=== PATIENT | female | born 1960 | race Caucasian/White ===

== ENCOUNTER 2024-10-02 10:05 | Emergency (ER) | payer OTHER ==
[2024-10-02 10:48] LABS: #Basophils 0.1 thou/uL (0.0-0.2); #Eosinophils 0.0 thou/uL (0.0-0.7); #Lymphocytes 0.7 thou/uL (1.20-3.40); #Monocytes 0.3 thou/uL (0.11-0.59); #Neutrophils 14.3 thou/uL (1.40-6.50); %Basophils 0.3 % (0.0-1.0); %Eosinophils 0.0 % (0.0-10.0); %Lymphocytes 4.7 % (21.0-51.0); %Monocytes 2.1 % (0.0-10.0); %Neutrophils 92.8 % (42.0-75.0); Hematocrit 37.2 % (36.0-47.0); Hemoglobin 12.5 g/dL (12.0-16.0); Mean Corpuscular Hemoglobin 29.6 pg (27.0-31.0); Mean Corpuscular Volume 88.5 fl (78.0-98.0); Platelet Count 299 10x3/uL (130-400); Red Blood Cell (RBC) Count 4.20 mill/uL (4.20-5.40); White Blood Cell (WBC) Count 15.4 10x3/uL (4.8-10.8)
[2024-10-02 11:02] LABS: ALT (SGPT) 19 U/L (Less than 34); AST (SGOT) 16 U/L (11-34); Albumin 3.5 g/dL (3.1-4.5); Alkaline Phosphatase 48 U/L (40-110); Anion Gap 19 mmol/L (10-20); BUN (Urea Nitrogen) 11 mg/dL (9.8-20.1); Bilirubin, Total 1.3 mg/dL (0.3-1.2); Calc. Creatinine Clearance 0 mL/min (70-130); Carbon Dioxide 22 mmol/L (23-31); Chloride 98 mmol/L (98-107); Globulin 3.5 g/dL (2.4-3.5); Glucose 172 mg/dL (80-115); Potassium 3.2 mmol/L (3.5-5.1); Sodium 136 mmol/L (136-145)
[2024-10-02 11:12] LABS: Calcium 6.4 mg/dL (7.8-10.44); Magnesium 0.6 mg/dL (1.6-2.6)
[2024-10-02] MEDS ORDERED: Magnesium 2 GM/50 ML BAG (IN WATER) ONE ×2 (11:29→15:06)
[2024-10-02 13:30] LABS: Glucose, Urine (Dipstick) Negative (Negative); Leukocyte Trace (Negative); Protein, Urine (Dipstick) 30 mg/dL (Neg-Trace); Specific Gravity, Urine 1.015 (1.005-1.030)
[2024-10-02 13:40] LABS: Bacteria/HPF 2+ HPF (None Seen); CAUTI Indications for Culture Dysuria,urgency,freq; RBC/HPF 0-3 HPF (0-3)
[2024-10-02 13:41] LABS: Urine Culture Reflex No No
[2024-10-02] MEDS ORDERED: cefTRIAXone (ROCEPHIN) 1 GM VIAL ONE (16:35)
== END 2024-10-02 18:50 | disposition home or self-care (01) ==
LOC: BURERS 10:05
DX: E87.6 Hypokalemia (principal); E83.42 Hypomagnesemia; N39.0 Urinary tract infection, site not specified; I48.91 Unspecified atrial fibrillation; E11.9 Type 2 diabetes mellitus without complications; I11.0 Hypertensive heart disease with heart failure; I50.9 Heart failure, unspecified; E78.5 Hyperlipidemia, unspecified; Z79.84 Long term (current) use of oral hypoglycemic drugs; Z79.82 Long term (current) use of aspirin; Z79.899 Other long term (current) drug therapy; Z87.891 Personal history of nicotine dependence
CPT/HCPCS: 36415; 80053; 81001; 83735; 85025; 96361; 96365; 96366; 96367; J0696; J3475

== ENCOUNTER 2025-03-07 18:43 | Emergency (ER) | payer OTHER, MEDICAID ==
[2025-03-07 19:23] LABS: INR-International Normal Ratio 1.0; Prothrombin Time 13.7 sec (12.0-14.7)
[2025-03-07 19:24] LABS: Hematocrit 44.4 % (36.0-47.0); Hemoglobin 15.1 g/dL (12.0-16.0); Mean Corpuscular Hemoglobin 30.7 pg (27.0-31.0); Mean Corpuscular Volume 90.3 fl (78.0-98.0); Platelet Count 307 10x3/uL (130-400); Red Blood Cell (RBC) Count 4.92 mill/uL (4.20-5.40); White Blood Cell (WBC) Count 15.2 10x3/uL (4.8-10.8)
[2025-03-07 19:32] LABS: ALT (SGPT) 42 U/L (Less than 34); AST (SGOT) 39 U/L (11-34); Albumin 4.1 g/dL (3.1-4.5); Alkaline Phosphatase 69 U/L (40-110); Anion Gap 22 mmol/L (10-20); BUN (Urea Nitrogen) 27 mg/dL (9.8-20.1); Bilirubin, Total 0.4 mg/dL (0.3-1.2); Calc. Creatinine Clearance 0 mL/min (70-130); Calcium 8.9 mg/dL (7.8-10.44); Carbon Dioxide 19 mmol/L (23-31); Chloride 103 mmol/L (98-107); Globulin 3.5 g/dL (2.4-3.5); Glucose 180 mg/dL (80-115); Potassium 4.3 mmol/L (3.5-5.1); Sodium 140 mmol/L (136-145)
[2025-03-07 19:33] LABS: Troponin I 0.026 ng/mL (< 0.028)
[2025-03-07 19:41] LABS: MDiff Complete? YES
[2025-03-07] MEDS ORDERED: Aspirin Chewable 81 MG TAB ONE (21:54)
[2025-03-07] MEDS ORDERED: HYDROcodone/Acetaminophen 5/325 mg Tablet ONE (22:06)
[2025-03-08 00:04] LABS: Glucose, Urine (Dipstick) Negative (Negative); Leukocyte Negative (Negative); Protein, Urine (Dipstick) 30 mg/dL (Neg-Trace); Specific Gravity, Urine 1.020 (1.005-1.030)
[2025-03-08 00:05] LABS: Bacteria/HPF None Seen HPF (None Seen); CAUTI Indications for Culture Fever or rigors; RBC/HPF None Seen HPF (0-3); WBC/HPF None Seen HPF (0-3)
[2025-03-08 00:06] LABS: Urine Culture Reflex No No
== END 2025-03-07 23:50 | disposition short-term general hospital (02) ==
LOC: BURERS 18:43
DX: R07.89 Other chest pain (principal); I48.91 Unspecified atrial fibrillation; I11.0 Hypertensive heart disease with heart failure; I50.9 Heart failure, unspecified; E11.9 Type 2 diabetes mellitus without complications; Z87.891 Personal history of nicotine dependence; Z79.899 Other long term (current) drug therapy; Z79.01 Long term (current) use of anticoagulants; Z79.84 Long term (current) use of oral hypoglycemic drugs; W19.XXXA Unspecified fall, initial encounter
CPT/HCPCS: 71260; 74177; 80053; 81001; 83880; 84484; 85025; 85610; 93005; 96372; 96374; 99285; J2270; J2272; 36415